=== PATIENT | male | born 1975 | race American Indian/Alaskan Native ===

== ENCOUNTER 2019-05-11 21:13 | Inpatient (IN) | payer OTHER ==
--- NOTE | 2019-05-11 21:53 | Emergency Department Report ---
ED Altered Mental Status HPI - General Stated Complaint: ALTERED MENTAL STATUS Time Seen by Provider: 05/11/19 21:49 Source: patient, EMS Mode of arrival: Stretcher Limitations: Altered Mental Status - History of Present Illness Initial Comments: Condition is a 43-year-old male that presents emergency room with complaints of confusion and altered mental status. Patient's family called 911 due to the patient answering questions incorrectly. Patient states he's had abdominal pain today that resolved. Patient states he drank 8 hours ago. Patient states he has a history of pancreatitis due to alcohol use. Patient states his pain was in the left upper quadrant. Patient states this point is resolved. Patient is currently a and O 2. Patient is oriented to self, place. Patient is disoriented to time. . Patient's last known well time 9:30 this morning. Patient's last drink was 8 hours ago. MD Complaint: altered mental status, confusion -: Sudden Severity: severe Consistency of Symptoms: getting worse Context: alcohol abuse Associated Symptoms: nausea/vomiting - Related Data Home Medications Medication Instructions Recorded Confirmed Last Taken No Known Home Medications [No 05/12/19 05/12/19 Unknown Reported Home Medications] Allergies Allergy/AdvReac Type Severity Reaction Status Date / Time No Known Allergies Allergy Verified 05/11/19 23:00 ED Review of Systems ROS: Stated complaint: ALTERED MENTAL STATUS Other details as noted in HPI Comment: Unobtainable due to pts medical conditions (ROS done however is unclear due to the patient's confusion and mental state.) Constitutional: denies: chills, fever Eyes: denies: eye pain, eye discharge, vision change ENT: denies: ear pain, throat pain Respiratory: denies: cough, shortness of breath, wheezing Cardiovascular: denies: chest pain, palpitations Endocrine: no symptoms reported Gastrointestinal: abdominal pain, nausea, vomiting. denies: diarrhea Genitourinary: denies: urgency, dysuria Musculoskeletal: denies: back pain, joint swelling, arthralgia Skin: denies: rash, lesions Neurological: denies: headache, weakness, paresthesias Psychiatric: denies: anxiety, depression Hematological/Lymphatic: denies: easy bleeding, easy bruising ED Past Medical Hx - Past Medical History Previous Medical History?: Yes Additional medical history: Pancreatitis - Surgical History Past Surgical History?: No - Family History Family history: no significant - Social History Smoking Status: Current Every Day Smoker Substance Use Type: Alcohol - Medications Home Medications: Home Medications Medication Instructions Recorded Confirmed Last Taken Type No Known Home Medications [No 05/12/19 05/12/19 Unknown History Reported Home Medications] ED Physical Exam - General Limitations: Altered Mental Status General appearance: alert, in no apparent distress - Head Head exam: Present: atraumatic, normocephalic - Eye Eye exam: Present: normal appearance - ENT ENT exam: Present: mucous membranes moist - Neck Neck exam: Present: normal inspection - Respiratory Respiratory exam: Present: normal lung sounds bilaterally. Absent: respiratory distress - Cardiovascular Cardiovascular Exam: Present: regular rate, normal rhythm. Absent: systolic murmur, diastolic murmur, rubs, gallop - GI/Abdominal GI/Abdominal exam: Present: soft, tenderness (left upper quadrant tenderness), normal bowel sounds - Rectal Rectal exam: Present: deferred - Extremities Exam Extremities exam: Present: normal inspection - Back Exam Back exam: Present: normal inspection - Neurological Exam Neurological exam: Present: alert, altered - Skin Skin exam: Present: warm, dry, intact, normal color. Absent: rash - Assessment Assessment Interval: Baseline - Level of Consciousness 1a. Level of Consciousness: alert/keenly responsive - LOC Questions 1b. LOC Questions: answers both correctly - LOC Command 1c. LOC Commands: performs tasks correctly - Best Gaze 2. Best Gaze: normal - Visual 3. Visual: no visual loss - Facial Palsy 4. Facial Palsy: normal symmetrical movement - Motor Arm 5a. Motor Arm Left: no drift 5b. Motor Arm Right: no drift - Motor Leg 6a. Motor Leg Left: no drift 6b. Motor Leg Right: no drift - Limb Ataxia 7. Limb Ataxia: absent - Sensory 8. Sensory: normal - Best Language 9. Best Language: no aphasia - Dysarthria 10. Dysarthria: normal - Extinction and Inattention 11. Extinction/Inattention: no abnormality - Scoring Total Score: 0 Stroke Severity: No Stroke Symptoms ED Course Vital Signs 05/11/19 05/11/19 05/12/19 22:09 23:00 00:00 Temperature 98.1 F Pulse Rate 51 L 48 L 48 L Respiratory 18 17 16 Rate Blood Pressure 133/88 129/88 125/86 Blood Pressure 133/88 [Right] O2 Sat by Pulse 100 97 98 Oximetry 05/12/19 01:00 Temperature Pulse Rate 45 L Respiratory 15 Rate Blood Pressure 143/86 Blood Pressure [Right] O2 Sat by Pulse 98 Oximetry - Reevaluation(s) Reevaluation #1: Patient is still confused. Patient is oriented to person and place but disoriented oriented to situation and time. Discussed case with . states the patient has been extremely confused today. 05/11/19 23:02 - Consultations Consultation #1: Hospital was counseled for admission. Hospitalist to admit patient. 05/12/19 00:21 - Lab Data Result diagrams: 05/11/19 22:26 05/11/19 22:26 Lab Results 05/11/19 05/11/19 05/11/19 Range/Units 22:26 22:26 22:26 WBC 12.5 H (4.5-11.0) K/mm3 RBC 4.36 (3.65-5.03) M/mm3 Hgb 13.7 (11.8-15.2) gm/dl Hct 40.3 (35.5-45.6) % MCV 92 (84-94) fl MCH 31 (28-32) pg MCHC 34 (32-34) % RDW 13.5 (13.2-15.2) % Plt Count 399 (140-440) K/mm3 Lymph % (Auto) 9.3 L (13.4-35.0) % Stephenson % (Auto) 5.4 (0.0-7.3) % Eos % (Auto) 0.0 (0.0-4.3) % Baso % (Auto) 0.8 (0.0-1.8) % Lymph # 1.2 (1.2-5.4) K/mm3 Stephenson # 0.7 (0.0-0.8) K/mm3 Eos # 0.0 (0.0-0.4) K/mm3 Baso # 0.1 (0.0-0.1) K/mm3 Seg Neutrophils % 84.5 H (40.0-70.0) % Seg Neutrophils # 10.6 H (1.8-7.7) K/mm3 Sodium 138 (137-145) mmol/L Potassium 3.8 (3.6-5.0) mmol/L Chloride 99.5 (98-107) mmol/L Carbon Dioxide 25 (22-30) mmol/L Anion Gap 17 mmol/L BUN 8 L (9-20) mg/dL Creatinine 1.1 (0.8-1.5) mg/dL Estimated GFR > 60 ml/min BUN/Creatinine Ratio 7 % Glucose 129 H (75-100) mg/dL Lactic Acid 2.10 H* (0.7-2.0) mmol/L Calcium 9.5 (8.4-10.2) mg/dL Total Bilirubin 0.70 (0.1-1.2) mg/dL AST 283 H (5-40) units/L ALT 102 H (7-56) units/L Alkaline Phosphatase 265 H (35-129) units/L Ammonia (25-60) umol/L Total Protein 7.3 (6.3-8.2) g/dL Albumin 3.6 L (3.9-5) g/dL Albumin/Globulin Ratio 1.0 % Lipase 12 L (13-60) units/L Urine Color (Yellow) Urine Turbidity (Clear) Urine pH (5.0-7.0) Ur Specific Stevenson (1.003-1.030) Urine Protein (Negative) mg/dL Urine Glucose (UA) (Negative) mg/dL Urine Ketones (Negative) mg/dL Urine Blood (Negative) Urine Nitrite (Negative) Urine Bilirubin (Negative) Urine Urobilinogen (<2.0) mg/dL Ur Leukocyte Esterase (Negative) Urine WBC (Auto) (0.0-6.0) /HPF Urine RBC (Auto) (0.0-6.0) /HPF U Epithel Cells (Auto) (0-13.0) /HPF Hyaline Casts /LPF Urine Mucus /HPF Urine Yeast (Budding) /HPF Salicylates (2.8-20.0) mg/dL Urine Opiates Screen Urine Methadone Screen Acetaminophen (10.0-30.0) ug/mL Ur Barbiturates Screen Ur Phencyclidine Scrn Ur Amphetamines Screen U Benzodiazepines Scrn Urine Cocaine Screen U Marijuana (THC) Screen Drugs of Abuse Note Plasma/Serum Alcohol (0-0.07) % 05/11/19 05/11/19 05/11/19 Range/Units 22:26 22:26 22:26 WBC (4.5-11.0) K/mm3 RBC (3.65-5.03) M/mm3 Hgb (11.8-15.2) gm/dl Hct (35.5-45.6) % MCV (84-94) fl MCH (28-32) pg MCHC (32-34) % RDW (13.2-15.2) % Plt Count (140-440) K/mm3 Lymph % (Auto) (13.4-35.0) % Stephenson % (Auto) (0.0-7.3) % Eos % (Auto) (0.0-4.3) % Baso % (Auto) (0.0-1.8) % Lymph # (1.2-5.4) K/mm3 Stephenson # (0.0-0.8) K/mm3 Eos # (0.0-0.4) K/mm3 Baso # (0.0-0.1) K/mm3 Seg Neutrophils % (40.0-70.0) % Seg Neutrophils # (1.8-7.7) K/mm3 Sodium (137-145) mmol/L Potassium (3.6-5.0) mmol/L Chloride (98-107) mmol/L Carbon Dioxide (22-30) mmol/L Anion Gap mmol/L BUN (9-20) mg/dL Creatinine (0.8-1.5) mg/dL Estimated GFR ml/min BUN/Creatinine Ratio % Glucose (75-100) mg/dL Lactic Acid (0.7-2.0) mmol/L Calcium (8.4-10.2) mg/dL Total Bilirubin (0.1-1.2) mg/dL AST (5-40) units/L ALT (7-56) units/L Alkaline Phosphatase (35-129) units/L Ammonia 58.0 (25-60) umol/L Total Protein (6.3-8.2) g/dL Albumin (3.9-5) g/dL Albumin/Globulin Ratio % Lipase (13-60) units/L Urine Color (Yellow) Urine Turbidity (Clear) Urine pH (5.0-7.0) Ur Specific Stevenson (1.003-1.030) Urine Protein (Negative) mg/dL Urine Glucose (UA) (Negative) mg/dL Urine Ketones (Negative) mg/dL Urine Blood (Negative) Urine Nitrite (Negative) Urine Bilirubin (Negative) Urine Urobilinogen (<2.0) mg/dL Ur Leukocyte Esterase (Negative) Urine WBC (Auto) (0.0-6.0) /HPF Urine RBC (Auto) (0.0-6.0) /HPF U Epithel Cells (Auto) (0-13.0) /HPF Hyaline Casts /LPF Urine Mucus /HPF Urine Yeast (Budding) /HPF Salicylates < 0.3 L (2.8-20.0) mg/dL Urine Opiates Screen Urine Methadone Screen Acetaminophen < 5.0 L (10.0-30.0) ug/mL Ur Barbiturates Screen Ur Phencyclidine Scrn Ur Amphetamines Screen U Benzodiazepines Scrn Urine Cocaine Screen U Marijuana (THC) Screen Drugs of Abuse Note Plasma/Serum Alcohol (0-0.07) % 05/11/19 05/11/19 05/11/19 Range/Units 22:26 22:39 22:39 WBC (4.5-11.0) K/mm3 RBC (3.65-5.03) M/mm3 Hgb (11.8-15.2) gm/dl Hct (35.5-45.6) % MCV (84-94) fl MCH (28-32) pg MCHC (32-34) % RDW (13.2-15.2) % Plt Count (140-440) K/mm3 Lymph % (Auto) (13.4-35.0) % Stephenson % (Auto) (0.0-7.3) % Eos % (Auto) (0.0-4.3) % Baso % (Auto) (0.0-1.8) % Lymph # (1.2-5.4) K/mm3 Stephenson # (0.0-0.8) K/mm3 Eos # (0.0-0.4) K/mm3 Baso # (0.0-0.1) K/mm3 Seg Neutrophils % (40.0-70.0) % Seg Neutrophils # (1.8-7.7) K/mm3 Sodium (137-145) mmol/L Potassium (3.6-5.0) mmol/L Chloride (98-107) mmol/L Carbon Dioxide (22-30) mmol/L Anion Gap mmol/L BUN (9-20) mg/dL Creatinine (0.8-1.5) mg/dL Estimated GFR ml/min BUN/Creatinine Ratio % Glucose (75-100) mg/dL Lactic Acid (0.7-2.0) mmol/L Calcium (8.4-10.2) mg/dL Total Bilirubin (0.1-1.2) mg/dL AST (5-40) units/L ALT (7-56) units/L Alkaline Phosphatase (35-129) units/L Ammonia (25-60) umol/L Total Protein (6.3-8.2) g/dL Albumin (3.9-5) g/dL Albumin/Globulin Ratio % Lipase (13-60) units/L Urine Color Yellow (Yellow) Urine Turbidity Slightly-cloudy (Clear) Urine pH 5.0 (5.0-7.0) Ur Specific Stevenson 1.017 (1.003-1.030) Urine Protein 100 mg/dl (Negative) mg/dL Urine Glucose (UA) Neg (Negative) mg/dL Urine Ketones Neg (Negative) mg/dL Urine Blood Lg (Negative) Urine Nitrite Neg (Negative) Urine Bilirubin Neg (Negative) Urine Urobilinogen < 2.0 (<2.0) mg/dL Ur Leukocyte Esterase Tr (Negative) Urine WBC (Auto) 29.0 H (0.0-6.0) /HPF Urine RBC (Auto) 172.0 (0.0-6.0) /HPF U Epithel Cells (Auto) < 1.0 (0-13.0) /HPF Hyaline Casts 2 /LPF Urine Mucus Few /HPF Urine Yeast (Budding) 1+ /HPF Salicylates (2.8-20.0) mg/dL Urine Opiates Screen Presumptive negative Urine Methadone Screen Presumptive negative Acetaminophen (10.0-30.0) ug/mL Ur Barbiturates Screen Presumptive negative Ur Phencyclidine Scrn Presumptive negative Ur Amphetamines Screen Presumptive negative U Benzodiazepines Scrn Presumptive negative Urine Cocaine Screen Presumptive negative U Marijuana (THC) Screen Presumptive negative Drugs of Abuse Note Disclamer Plasma/Serum Alcohol < 0.01 (0-0.07) % - Radiology Data Radiology results: report reviewed CT head/brain wo con INDICATION / CLINICAL INFORMATION: Altered Mental Status. Weakness and falls. TECHNIQUE: All CT scans at this location are performed using CT dose reduction for ALARA by means of automated exposure control. COMPARISON: None available. FINDINGS: There is mild generalized cerebral and cerebellar atrophy. No focal lesion or mass effect is seen. There is no evidence of intracranial hemorrhage or major vessel occlusion. The calvarium is intact. The visualized paranasal sinuses and mastoid air cells are clear. IMPRESSION: 1. No acute abnormality. 2. Mild generalized cerebral and cerebellar atrophy for a patient in this age group. CT abdomen pelvis wo con INDICATION: abd pain. n/v. ams. TECHNIQUE: All CT scans at this location are performed using CT dose reduction for ALARA by means of automated exposure control. COMPARISON: None available. FINDINGS: Minimal parenchymal disease in the base of the right middle lobe and lingula, atelectasis versus minimal consolidation. Hepatic steatosis, with no focal liver lesions. Spleen is negative. Small calcifications in the pancreas, suggesting chronic pancreatitis, but there is certainly no evidence of current pancreatitis. 1.2 cm cystic lesion in the pancreatic body. Nonobstructing calculi in both kidneys. Left kidney is hydronephrotic, with a 5 mm calculus in the proximal left ureter. Pelvis Normal appendix. Small amount of free fluid in the dependent pelvis. Urinary bladder and distal ureters are negative. IMPRESSION: 1. Bilateral nonobstructing renal calculi, with a 5 mm obstructing calculus in the proximal left ureter. 2. Pancreatic calcifications, suggesting chronic pancreatitis, with a 1.2 cm cystic lesion in the pancreatic body. No evidence of current pancreatitis. - Medical Decision Making Patient is a 43-year-old male that presents to emergency room with complaints of confusion and altered mental status. Patient has a long history of alcoholism. Patient blood alcohol negative. Patient placed on a CIWA protocol. Head CT shows atrophy. Patient's abdominal CT negative for acute findings which shows nonobstructive kidney stones and chronic pancreatitis. Patient labs unremarkable except for abnormal LFTs and UA positive for UTI and lactic acidosis. Patient given fluids. Patient given banana bag. Patient given antibiotics. - Differential Diagnosis alcoholism. UTI. Confusion. AMS. Critical Care Time: Yes Critical care attestation.: If time is entered above; I have spent that time in minutes in the direct care of this critically ill patient, excluding procedure time. Critical Care Time: 35 minutes ED Disposition Clinical Impression: Confusion, Weakness, Alcohol abuse, Lactic acid acidosis Altered mental state Qualifiers: Altered mental status type: unspecified Qualified Code(s): R41.82 - Altered mental status, unspecified UTI (urinary tract infection) Qualifiers: Urinary tract infection type: acute cystitis Hematuria presence: with hematuria Qualified Code(s): N30.01 - Acute cystitis with hematuria Chronic pancreatitis Qualifiers: Pancreatitis type: alcohol induced Qualified Code(s): K86.0 - Alcohol-induced chronic pancreatitis Abdominal pain Qualifiers: Abdominal location: generalized Qualified Code(s): R10.84 - Generalized abdominal pain Nausea & vomiting Qualifiers: Vomiting type: unspecified Vomiting Intractability: non-intractable Qualified Code(s): R11.2 - Nausea with vomiting, unspecified Disposition: DC-09 OP ADMIT IP TO THIS HOSP Is pt being admited?: Yes Does the pt Need Aspirin: No Condition: Critical Time of Disposition: 00:19
--- NOTE | 2019-05-11 22:34 | Cat Scan Report ---
CT abdomen pelvis wo con INDICATION: abd pain. n/v. ams. TECHNIQUE: All CT scans at this location are performed using CT dose reduction for ALARA by means of automated e xposure control. COMPARISON: None available. FINDINGS: Minimal parenchymal disease in the base of the right middle lobe and lingula, atelectasis versus mini mal consolidation. Hepatic steatosis, with no focal liver lesions. Spleen is negative. Small calcifications in the pancr eas, suggesting chronic pancreatitis, but there is certainly no evidence of current pancreatitis. 1.2 cm cystic lesion in the pancreatic body. Nonobstructing calculi in both kidneys. Left kidney is hydronephrotic, with a 5 mm calculus in the pr oximal left ureter. Pelvis Normal appendix. Small amount of free fluid in the dependent pelvis. Urinary bladder and distal urete rs are negative. IMPRESSION: 1. Bilateral nonobstructing renal calculi, with a 5 mm obstructing calculus in the proximal left uret er. 2. Pancreatic calcifications, suggesting chronic pancreatitis, with a 1.2 cm cystic lesion in the rojas creatic body. No evidence of current pancreatitis. Signer Name: Shahbaz De Santiago MD Signed: 05/11/2019 10:30 PM Workstation Name: [id number]
--- NOTE | 2019-05-11 22:35 | Cat Scan Report ---
CT head/brain wo con INDICATION / CLINICAL INFORMATION: Altered Mental Status. Weakness and falls. TECHNIQUE: All CT scans at this location are performed using CT dose reduction for ALARA by means of automated e xposure control. COMPARISON: None available. FINDINGS: There is mild generalized cerebral and cerebellar atrophy. No focal lesion or mass effect is seen. Th ere is no evidence of intracranial hemorrhage or major vessel occlusion. The calvarium is intact. The visualized paranasal sinuses and mastoid air cells are clear. IMPRESSION: 1. No acute abnormality. 2. Mild generalized cerebral and cerebellar atrophy for a patient in this age group. Signer Name: Lj Cain MD Signed: 05/11/2019 10:31 PM Workstation Name: [id number]
[2019-05-11 22:47] LABS: Basophils # (Auto) 0.1 K/mm3 (0.0-0.1); Basophils % (Auto) 0.8 % (0.0-1.8); Hematocrit 40.3 % (35.5-45.6); Hemoglobin 13.7 gm/dl (11.8-15.2); Lymphocytes # (Auto) 1.2 K/mm3 (1.2-5.4); Lymphocytes % (Auto) 9.3 % (13.4-35.0); Mean Corpuscular HGB Conc 34 % (32-34); Mean Corpuscular Volume 92 fl (84-94); Monocytes # (Auto) 0.7 K/mm3 (0.0-0.8); Monocytes % (Auto) 5.4 % (0.0-7.3); Platelet Count 399 K/mm3 (140-440); Red Blood Count 4.36 M/mm3 (3.65-5.03); Red Cell Distribution Width 13.5 % (13.2-15.2)
[2019-05-11] MEDS ORDERED: VITAMIN B-1 100 MG, FOLVITE 1 MG, INFUVITE 10 ML in NACL 0.9% 1000 ML 1,000 ML IV ONE (22:54)
[2019-05-11 22:56] LABS: Bilirubin,Urine NEG (Negative); Blood,Urine LG (Negative); Color,Urine Yellow (Yellow); Hyaline Casts,Urine 2 /LPF; Mucus,Urine FEW /HPF; Urobilinogen,Urine < 2.0 mg/dL (<2.0)
[2019-05-11 23:02] LABS: Amphetamine Screen,Urine PRESUMPTIVE NEGATIVE; Benzodiazepines Screen,Urine PRESUMPTIVE NEGATIVE; Cannabinoid Screen,Urine PRESUMPTIVE NEGATIVE; Cocaine Screen,Urine PRESUMPTIVE NEGATIVE; Methadone Screen,Urine PRESUMPTIVE NEGATIVE; Opiate Screen,Urine PRESUMPTIVE NEGATIVE
[2019-05-11 23:11] LABS: Alanine Aminotransferase 102 units/L (7-56); Albumin 3.6 g/dL (3.9-5); BUN/Creatinine Ratio 7; Blood Urea Nitrogen 8 mg/dL (9-20); Calcium 9.5 mg/dL (8.4-10.2); Hemolysis Index 0
[2019-05-11] MEDS ORDERED: NACL 0.9% 1000 ML 1,000 ML IV ONE (23:47)
[2019-05-12] MEDS ORDERED: MAXIPIME/NS 2 GM/100 ML 2 GM/100 ML BAG IV ONE (00:47)
[2019-05-12] MEDS ORDERED: ATIVAN IV PRN ×3 (00:47)
[2019-05-12] MEDS ORDERED: DILAUDID IV ONE (01:10)
[2019-05-12] MEDS ORDERED: SODIUM CHLORIDE FLUSH SYRINGE 10 ML IV PRN (01:42)
[2019-05-12] MEDS ORDERED: MORPHINE IV PRN (01:42)
[2019-05-12] MEDS ORDERED: ZOFRAN IV PRN (01:42)
[2019-05-12] MEDS ORDERED: NACL 0.9% 1000 ML 1,000 ML IV ONE (01:45)
--- NOTE | 2019-05-12 02:42 | History and Physical Report ---
History of Present Illness Date of examination: 05/12/19 Chief complaint: Abdominal pain History of present illness: Patient is a 43-year-old -Turkish male with history of chronic alcoholic pancreatitis who presented to the ED on account of a day history of left lower quadrant abdominal pain. He described it as sharp in character, rated 10 over 10 and radiating to the back. Pain is worse with oral liquid intake and improved with aspirin. He has associated constipation and nausea with vomiting. No urinary frequency or dysuria. No chest pain, shortness of breath, cough, fever, chills, headaches, lightheadedness, syncope or loss of consciousness. Past History Past Medical History: hypertension, other (chronic pancreatitis) Past Surgical History: Other (abdominal surgery for intestinal mass) Social history: alcohol abuse (patient has 10 years history of alcohol abuse. He currently drinks daily and his last drink was yesterday. He has 10 yrs history of smoking and 2 yrs history of cigarette smoking. He denies illicit drug use) Family history: diabetes (father) Medications and Allergies Allergies Allergy/AdvReac Type Severity Reaction Status Date / Time No Known Allergies Allergy Verified 05/11/19 23:00 Home Medications Medication Instructions Recorded Confirmed Last Taken Type No Known Home Medications [No 05/12/19 05/12/19 Unknown History Reported Home Medications] Active Meds: Active Medications Acetaminophen (Tylenol) 650 mg PO Q4H PRN PRN Reason: Pain MILD(1-3)/Fever >100.5/PERKINS Famotidine (Pepcid) 10 mg IV BID RAJENDRA Thiamine HCl 100 mg/ Folic Acid 1 mg/ Multivitamins/Minerals 10 ml/ Sodium Chloride 1,011.2 mls @ 250 mls/hr IV ONCE ONE Stop: 05/12/19 02:56 Last Admin: 05/11/19 23:25 Dose: 250 mls/hr Documented by: Sodium Chloride (Nacl 0.9% 1000 Ml) 1,000 mls @ 999 mls/hr IV BOLUS ONE Stop: 05/12/19 02:45 Last Admin: 05/12/19 02:20 Dose: 999 mls/hr Documented by: Sodium Chloride (Nacl 0.9% 1000 Ml) 1,000 mls @ 100 mls/hr IV DIRECT RAJENDRA Ceftriaxone Sodium (Rocephin/Ns 1 Gm/50 Ml) 1 gm in 50 mls @ 100 mls/hr IV Q24HR RAJENDRA; Protocol Lorazepam (Ativan) 2 mg IV Q1HR PRN PRN Reason: CIWA-Ar 8-15 Lorazepam (Ativan) 4 mg IV Q1HR PRN PRN Reason: CIWA-Ar 16-25 Lorazepam (Ativan) 4 mg IV Q15MIN PRN PRN Reason: CIWA-Ar >25 Morphine Sulfate (Morphine) 2 mg IV Q4H PRN PRN Reason: Pain , Severe (7-10) Ondansetron HCl (Zofran) 4 mg IV Q8H PRN PRN Reason: Nausea And Vomiting Oxycodone/Acetaminophen (Percocet 5/325) 1 tab PO Q6H PRN PRN Reason: Pain, Moderate (4-6) Sodium Chloride (Sodium Chloride Flush Syringe 10 Ml) 10 ml IV BID RAJENDRA Sodium Chloride (Sodium Chloride Flush Syringe 10 Ml) 10 ml IV PRN PRN PRN Reason: LINE FLUSH Review of Systems All systems: negative (all other systems reviewed with the patient and are negative unless otherwise stated) Exam - Constitutional Vitals: Temp Pulse Resp BP Pulse Ox 98.1 F 45 L 16 143/86 98 05/11/19 22:09 05/12/19 01:00 05/12/19 02:06 05/12/19 01:00 05/12/19 01:00 General appearance: Present: no acute distress - EENT Eyes: Present: PERRL, EOM intact ENT: hearing intact, clear oral mucosa - Neck Neck: Present: supple, normal ROM - Respiratory Respiratory effort: normal Respiratory: bilateral: CTA - Cardiovascular Rhythm: regular (with bradycardia) Heart Sounds: Present: S1 & S2. Absent: rub, click - Extremities Extremities: pulses symmetrical, No edema Peripheral Pulses: within normal limits - Abdominal General gastrointestinal: Present: soft, non-tender, non-distended, normal bowel sounds Male genitourinary: Present: deferred - Integumentary Integumentary: Present: clear, warm, dry - Musculoskeletal Musculoskeletal: gait normal, strength equal bilaterally - Psychiatric Psychiatric: appropriate mood/affect, intact judgment & insight - Neurologic Neurologic: CNII-XII intact, moves all extremities Results - Labs CBC & Chem 7: 05/11/19 22:26 05/11/19 22:26 Labs: Laboratory Last Values WBC 12.5 K/mm3 (4.5-11.0) H 05/11/19 22: RBC 4.36 M/mm3 (3.65-5.03) 05/11/19 22: Hgb 13.7 gm/dl (11.8-15.2) 05/11/19: Hct 40.3 % (35.5-45.6) 05/11/19 22: MCV 92 fl (84-94) 05/11/19: MCH 31 pg (28-32) 05/11/19 22: MCHC 34 % (32-34) 05/11/19: RDW 13.5 % (13.2-15.2) 05/11/19: Plt Count 399 K/mm3 (140-440) 05/11/19: Lymph % (Auto) 9.3 % (13.4-35.0) L 05/11/19: [place] % (Auto) 5.4 % (0.0-7.3) 05/11/19: Eos % (Auto) 0.0 % (0.0-4.3) 05/11/19: Baso % (Auto) 0.8 % (0.0-1.8) 05/11/19: Lymph # 1.2 K/mm3 (1.2-5.4) 05/11/19: Rush # 0.7 K/mm3 (0.0-0.8) 05/11/19: Eos # 0.0 K/mm3 (0.0-0.4) 05/11/19: Baso # 0.1 K/mm3 (0.0-0.1) 05/11/19: Seg Neutrophils % 84.5 % (40.0-70.0) H 05/11/19: Seg Neutrophils # 10.6 K/mm3 (1.8-7.7) H 05/11/19 22: Sodium 138 mmol/L (137-145) 05/11/19: Potassium 3.8 mmol/L (3.6-5.0) 05/11/19: Chloride 99.5 mmol/L (98-107) 05/11/19 22:26 Carbon Dioxide 25 mmol/L (22-30) 05/11/19 22:26 17 mmol/L 05/11/19 22:26 BUN 8 mg/dL (9-20) L 05/11/19 22:26 1.1 mg/dL (0.8-1.5) 05/11/19 22:26 Estimated GFR > 60 ml/min 05/11/19 22:26 7 % 05/11/19 22:26 Glucose 129 mg/dL (75-100) H 05/11/19 22:26 Lactic Acid 2.10 mmol/L (0.7-2.0) H* 05/11/19 22:26 Calcium 9.5 mg/dL (8.4-10.2) 05/11/19 22:26 0.70 mg/dL (0.1-1.2) 05/11/19 22:26 AST 283 units/L (5-40) H 05/11/19 22:26 ALT 102 units/L (7-56) H 05/11/19 22:26 265 units/L (35-129) H 05/11/19 22:26 58.0 umol/L (25-60) 05/11/19 22:26 7.3 g/dL (6.3-8.2) 05/11/19 22:26 3.6 g/dL (3.9-5) L 05/11/19 22:26 1.0 % 05/11/19 22:26 12 units/L (13-60) L 05/11/19 22:26 Yellow (Yellow) 05/11/19 22:39 Slightly-cloudy (Clear) 05/11/19 22:39 5.0 (5.0-7.0) 05/11/19 22:39 Ur Specific [place] 1.017 (1.003-1.030) 05/11/19 22:39 100 mg/dl mg/dL (Negative) 05/11/19 22:39 Neg mg/dL (Negative) 05/11/19 22:39 Neg mg/dL (Negative) 05/11/19 22:39 Lg (Negative) 05/11/19 22:39 Neg (Negative) 05/11/19 22:39 Neg (Negative) 05/11/19 22:39 < 2.0 mg/dL (<2.0) 05/11/19 22:39 Ur Leukocyte Esterase Tr (Negative) 05/11/19 22:39 29.0 /HPF (0.0-6.0) H 05/11/19 22:39 172.0 /HPF (0.0-6.0) 05/11/19 22:39 U Epithel Cells (Auto) < 1.0 /HPF (0-13.0) 05/11/19 22:39 Hyaline Casts 2 /LPF 05/11/19 22:39 Few /HPF 05/11/19 22:39 1+ /HPF 05/11/19 22:39 Salicylates < 0.3 mg/dL (2.8-20.0) L 05/11/19 22:26 Presumptive negative 05/11/19 22:39 Presumptive negative 05/11/19 22:39 Acetaminophen < 5.0 ug/mL (10.0-30.0) L 05/11/19 22:26 Ur Barbiturates Screen Presumptive negative 05/11/19 22:39 Ur Phencyclidine Scrn Presumptive negative 05/11/19 22:39 Ur Amphetamines Screen Presumptive negative 05/11/19 22:39 U Benzodiazepines Scrn Presumptive negative 05/11/19 22:39 Presumptive negative 05/11/19 22:39 U Marijuana (THC) Screen Presumptive negative 05/11/19 22:39 Disclamer 05/11/19 22:39 Plasma/Serum Alcohol < 0.01 % (0-0.07) 05/11/19 22:26 Assessment and Plan Assessment and plan: Left lower quadrant abdominal pain -Likely secondary to obstructing left renal calculi -On IV fluid and when necessary narcotics UTI/Acute cystitis -On IV antibiotic -Follow up urine culture results Lactic acidosis -Likely due to the acute process -We'll hydrate patient and repeat level Sinus bradycardia -Thyroid function tests pending -Echocardiogram pending Transaminitis -Likely secondary to chronic alcohol use, will monitor levels Chronic pancreatitis -On when necessary narcotics Hypertension -Stable History of alcohol abuse -Alcohol level is normal, on CISC protocol DVT prophylaxis with SCD and GI prophylaxis with famotidine Disposition: Patient will be placed in inpatient status with plan for discharge when clinically stable Time spent: 38 minutes
[2019-05-12] MEDS: NACL 0.9% 1000 ML 1,000 ML IV SCH (03:19)
[2019-05-12] MEDS: PERCOCET 5/325 PO PRN ×3 (05:57→18:22)
--- NOTE | 2019-05-12 12:05 | Event Note ---
Date: 05/12/19 Patient was admitted with abdominal and left flank pain, asymptomatic bradycardia History of alcohol use, on [facility] protocol Patient seen and examined medical records reviewed Agree with the current management Assessment: --Left obstructing proximal ureteral stone on CT/left hydronephrotic kidney --Asymptomatic bradycardia; closely monitor heart rate --Lactic acidosis --UTI/acute cystitis --Transaminitis/alcohol liver disease --Hypertension --Chronic alcohol use Plan; IV fluids/pain medications Urology consult Am[I discussed with the urologist] [facility] protocol Follow echocardiogram Cardiology consult if no improvement in heart rate DVT prophylaxis Counseling to quit alcohol intake May need alcohol rehabilitation Disposition; follow clinically, discharge when medically stable Follow urology evaluation and recommendations
[2019-05-12] MEDS: PEPCID IV SCH ×2 (12:54→23:30)
[2019-05-12] MEDS: SODIUM CHLORIDE FLUSH SYRINGE 10 ML IV SCH ×2 (12:54→23:30)
[2019-05-12] MEDS: ROCEPHIN/NS 1 GM/50 ML 1 GM/50 ML BAG IV SCH (12:54)
[2019-05-12 13:36] LABS: Basophils # (Auto) 0.1 K/mm3 (0.0-0.1); Basophils % (Auto) 0.7 % (0.0-1.8); Eosinophils # (Auto) 0.1 K/mm3 (0.0-0.4); Eosinophils % (Auto) 1.3 % (0.0-4.3); Hematocrit 36.2 % (35.5-45.6); Hemoglobin 12.1 gm/dl (11.8-15.2); Lymphocytes # (Auto) 1.8 K/mm3 (1.2-5.4); Lymphocytes % (Auto) 21.8 % (13.4-35.0); Mean Corpuscular HGB Conc 33 % (32-34); Mean Corpuscular Volume 94 fl (84-94); Monocytes # (Auto) 0.6 K/mm3 (0.0-0.8); Monocytes % (Auto) 7.4 % (0.0-7.3); Platelet Count 308 K/mm3 (140-440); Red Blood Count 3.86 M/mm3 (3.65-5.03)
[2019-05-12 13:59] LABS: Alanine Aminotransferase 68 units/L (7-56); Albumin 2.7 g/dL (3.9-5); BUN/Creatinine Ratio 8; Blood Urea Nitrogen 7 mg/dL (9-20); Calcium 8.2 mg/dL (8.4-10.2); Hemolysis Index 34
[2019-05-12] MEDS: TYLENOL PO PRN (23:33)
[2019-05-12] MEDS: APRESOLINE IV PRN (23:34)
[2019-05-13] MEDS: NACL 0.9% 1000 ML 1,000 ML IV SCH ×2 (04:48→14:15)
[2019-05-13 05:43] LABS: BUN/Creatinine Ratio 6; Blood Urea Nitrogen 5 mg/dL (9-20); Calcium 8.3 mg/dL (8.4-10.2)
[2019-05-13 05:44] LABS: Alanine Aminotransferase 58 units/L (7-56); Albumin 2.7 g/dL (3.9-5); Bilirubin,Direct 0.2 mg/dL (0-0.2); Hemolysis Index 0
--- NOTE | 2019-05-13 08:33 | Consultation ---
History of Present Illness - Reason for Consult Consult date: 05/13/19 - History of Present Illness new to urology service Patient is a 43-year-old -Citizen Of [place] male with history of chronic alcoholic pancreatitis who presented to the ED on account of a day history of left lower quadrant abdominal pain. He described it as sharp in character, rated 10 over 10 and radiating to the back. Pain is worse with oral liquid intake and improved with aspirin. He has associated constipation and nausea with vomiting. No urinary frequency or dysuria. No chest pain, shortness of breath, cough, fever, chills, headaches, lightheadedness, syncope or loss of consciousness. CTAP bilat renal stones, 5mm left stone with hydro A/P Bilat stones hx of chronic alcoholic pancreatitis Past History Past Medical History: hypertension, other (chronic pancreatitis) Past Surgical History: Other (abdominal surgery for intestinal mass) Social history: alcohol abuse (patient has 10 years history of alcohol abuse. He currently drinks daily and his last drink was yesterday. He has 10 yrs history of smoking and 2 yrs history of cigarette smoking. He denies illicit drug use) Family history: diabetes (father) Medications and Allergies Allergies Allergy/AdvReac Type Severity Reaction Status Date / Time No Known Allergies Allergy Verified 05/11/19 23:00 Home Medications Medication Instructions Recorded Confirmed Last Taken Type No Known Home Medications [No 05/12/19 05/12/19 Unknown History Reported Home Medications] Active Meds: Active Medications Acetaminophen (Tylenol) 650 mg PO Q4H PRN PRN Reason: Pain MILD(1-3)/Fever >100.5/PERKINS Last Admin: 05/12/19 23:33 Dose: 650 mg Documented by: Famotidine (Pepcid) 10 mg IV BID RAJENDRA Last Admin: 05/12/19 23:30 Dose: 10 mg Documented by: Hydralazine HCl (Apresoline) 10 mg IV Q4HR PRN PRN Reason: Blood Pressure Last Admin: 05/12/19 23:34 Dose: 10 mg Documented by: Sodium Chloride (Nacl 0.9% 1000 Ml) 1,000 mls @ 100 mls/hr IV DIRECT RAJENDRA Last Admin: 05/13/19 04:48 Dose: 100 mls/hr Documented by: Ceftriaxone Sodium (Rocephin/Ns 1 Gm/50 Ml) 1 gm in 50 mls @ 100 mls/hr IV Q24HR RAJENDRA; Protocol Last Admin: 05/12/19 12:54 Dose: 100 mls/hr Documented by: Lorazepam (Ativan) 2 mg IV Q1HR PRN PRN Reason: CIWA-Ar 8-15 Lorazepam (Ativan) 4 mg IV Q1HR PRN PRN Reason: CIWA-Ar 16-25 Lorazepam (Ativan) 4 mg IV Q15MIN PRN PRN Reason: CIWA-Ar >25 Morphine Sulfate (Morphine) 2 mg IV Q4H PRN PRN Reason: Pain , Severe (7-10) Last Admin: 05/13/19 05:41 Dose: 2 mg Documented by: Ondansetron HCl (Zofran) 4 mg IV Q8H PRN PRN Reason: Nausea And Vomiting Oxycodone/Acetaminophen (Percocet 5/325) 1 tab PO Q6H PRN PRN Reason: Pain, Moderate (4-6) Last Admin: 05/12/19 18:22 Dose: 1 tab Documented by: Sodium Chloride (Sodium Chloride Flush Syringe 10 Ml) 10 ml IV BID [facility] Last Admin: 05/12/19 23:30 Dose: 10 ml Documented by: Sodium Chloride (Sodium Chloride Flush Syringe 10 Ml) 10 ml IV PRN PRN PRN Reason: LINE FLUSH Exam - Constitutional Vitals: Temp Pulse Resp BP Pulse Ox 99.0 F 49 L 18 150/93 97 05/13/19 05:29 05/13/19 05:29 05/13/19 05:29 05/13/19 05:29 05/13/19 05:29 Results - Labs CBC & Chem 7: 05/12/19 12:44 05/13/19 04:44 Labs: Abnormal lab results 05/12/19 05/12/19 05/13/19 Range/Units 12:44 12:44 04:44 [place] % (Auto) 7.4 H (0.0-7.3) % Sodium 136 L 136 L (137-145) mmol/L Carbon Dioxide 20 L (22-30) mmol/L BUN 7 L 5 L (9-20) mg/dL Glucose 128 H 111 H (75-100) mg/dL Calcium 8.2 L 8.3 L (8.4-10.2) mg/dL Magnesium 1.40 L (1.7-2.3) mg/dL AST 105 H 101 H (5-40) units/L ALT 68 H 58 H (7-56) units/L Alkaline Phosphatase 189 H 175 H (35-129) units/L Total Protein 6.1 L 5.9 L (6.3-8.2) g/dL Albumin 2.7 L 2.7 L (3.9-5) g/dL
[2019-05-13] MEDS: ROCEPHIN/NS 1 GM/50 ML 1 GM/50 ML BAG IV SCH (09:12)
[2019-05-13] MEDS: PEPCID IV SCH ×2 (09:12→21:33)
[2019-05-13] MEDS: SODIUM CHLORIDE FLUSH SYRINGE 10 ML IV SCH ×2 (09:13→21:34)
[2019-05-13] MEDS: TYLENOL PO PRN ×2 (14:12→20:24)
[2019-05-13] MEDS: APRESOLINE IV PRN (14:12)
--- NOTE | 2019-05-13 15:42 | Progress Note ---
Assessment and Plan Left lower quadrant abdominal pain -Likely secondary to obstructing left renal calculi -On IV fluid and when necessary narcotics - urology consulted and planned for cystoscopy today UTI/Acute cystitis -On IV antibiotic -Follow up urine culture results Lactic acidosis -Likely due to the acute process -We'll hydrate patient and repeat level Sinus bradycardia -Thyroid function tests pending -Echocardiogram pending Transaminitis -Likely secondary to chronic alcohol use, will monitor levels Chronic pancreatitis -On when necessary narcotics Hypertension -Stable History of alcohol abuse -Alcohol level is normal, on CIWA protocol DVT prophylaxis with SCD and GI prophylaxis with famotidine Disposition: Patient will be placed in inpatient status with plan for discharge when clinically stable Subjective Date of service: 05/13/19 Interval history: Patient seen and examined c/o lumber pain, and dysurea NPO now for the procedure this afternoon Objective - Constitutional Vitals: Vital Signs - 12hr 05/13/19 05/13/19 05:29 12:05 Temperature 99.0 F 99.4 F Pulse Rate 49 L 54 L Respiratory 18 20 Rate Blood Pressure 150/93 169/105 O2 Sat by Pulse 97 95 Oximetry General appearance: Present: no acute distress - EENT Eyes: PERRL, EOM intact ENT: hearing intact, clear oral mucosa Ears: bilateral: normal - Neck Neck: supple, normal ROM - Respiratory Respiratory effort: normal Respiratory: bilateral: CTA - Cardiovascular Rhythm: regular Heart Sounds: Present: S1 & S2. Absent: gallop, rub Extremities: pulses intact, No edema, normal color, Full ROM - Gastrointestinal General gastrointestinal: Present: soft, non-distended, normal bowel sounds, other (CVa tenderness) - Integumentary Integumentary: clear, warm, dry - Musculoskeletal Musculoskeletal: 1, strength equal bilaterally - Neurologic Neurologic: moves all extremities - Psychiatric Psychiatric: memory intact, appropriate mood/affect, intact judgment & insight - Labs CBC & Chem 7: 05/12/19 12:44 05/13/19 04:44 Labs: Abnormal lab results 05/13/19 Range/Units 04:44 Sodium 136 L (137-145) mmol/L BUN 5 L (9-20) mg/dL Glucose 111 H (75-100) mg/dL Calcium 8.3 L (8.4-10.2) mg/dL Magnesium 1.40 L (1.7-2.3) mg/dL AST 101 H (5-40) units/L ALT 58 H (7-56) units/L Alkaline Phosphatase 175 H (35-129) units/L Total Protein 5.9 L (6.3-8.2) g/dL Albumin 2.7 L (3.9-5) g/dL - Imaging and cardiology CT scan - abdomen: report reviewed CT Scan - head: report reviewed
[2019-05-13] MEDS ORDERED: ZOFRAN IV PRN ×2 (16:34→17:49)
[2019-05-13] MEDS ORDERED: SUBLIMAZE IV PRN (16:34)
--- NOTE | 2019-05-13 16:36 | Anesthesia Day of Surgery ---
Anesthesia Day of Surgery - Day of Surgery Patient Examined: Yes Patient H&P Reviewed: Yes Patient is NPO: Yes
--- NOTE | 2019-05-13 16:38 | Anesthesia Consultation ---
Anesthesia Consult and Med Hx Date of service: 05/13/19 - Airway Anesthetic Teeth Evaluation: Poor (LOOSE upper right) ROM Head & Neck: Adequate Mental/Hyoid Distance: Adequate Mallampati Class: Class II Intubation Access Assessment: Good - Pre-Operative Health Status ASA Pre-Surgery Classification: ASA3 Proposed Anesthetic Plan: General - Pulmonary Hx Smoking: Yes Hx Asthma: No COPD: No Hx Pneumonia: No Hx Sleep Apnea: No - Cardiovascular System Hx Hypertension: Yes (No RX) Hx Cardia Arrhythmia: Yes (Bradycardia; EF 40-45%) - Central Nervous System Hx Psychiatric Problems: No - Endocrine Hx End Stage Renal Disease: No Hx Liver Disease: Yes (Increased LFTs; Albumin 2.7) Hx Non-Insulin Dependent Diabetes: No (Pancreatitis) - Other Systems Hx Alcohol Use: Yes (Heavy) Hx Substance Use: No Hx Cancer: No
[2019-05-13] MEDS ORDERED: LACTATED RINGERS 1,000 ML ONE (16:46)
[2019-05-13] MEDS ORDERED: DIPRIVAN 10 MG/ML IV ONE (16:50)
[2019-05-13] MEDS ORDERED: XYLOCAINE MPF 2% ONE (16:50)
[2019-05-13] MEDS ORDERED: SUBLIMAZE ONE (16:50)
[2019-05-13] MEDS ORDERED: LEVAQUIN 500MG/100ML 500 MG/100 ML BAG IV ONE (17:21)
--- NOTE | 2019-05-13 17:48 | Post Operative Note ---
Date of procedure: 05/13/19 Pre-op diagnosis: left ureteral stone 5mm Post-op diagnosis: same Procedure: cysto, rpg, left ureteroscopy laser, basket stone, stent with external string Anesthesia: FRANNY Surgeon: VERÓNICA JIMÉNEZ Condition: stable Disposition: PACU (bactrim & norco on chart)
[2019-05-13] MEDS ORDERED: MORPHINE IV PRN (17:49)
[2019-05-13] MEDS ORDERED: NORCO 5/325 PO PRN (17:49)
[2019-05-13] MEDS ORDERED: NARCAN 0.4 MG/1 ML IV PRN (17:49)
--- NOTE | 2019-05-13 18:43 | Operative Report ---
PREOPERATIVE DIAGNOSIS: Left proximal ureteral stone. POSTOPERATIVE DIAGNOSIS: Left proximal ureteral stone. PROCEDURE: Cystoscopy, bilateral retrograde pyelograms, left ureteroscopy, holmium laser lithotripsy, basket stone extraction, double-J stent (6-[place] 26 cm with an external string). SURGEON: Antoni Sinha MD ANESTHESIA: General. ESTIMATED BLOOD LOSS: Minimal. FLUIDS: Crystalloid. COMPLICATIONS: No complications. INDICATIONS: This patient is a 43-year-old gentleman who presented to the Emergency Room with severe flank pain. CT of abdomen and pelvis revealed a 5 mm left proximal ureteral stone. We were consulted. Discussed options with the patient. He gives a history of kidney stones; however, he has passed them in the past and not required any surgery. His pain was severe. We discussed options. He agreed to proceed with surgical intervention. Written information was given. DESCRIPTION OF PROCEDURE: The patient was taken to the operative suite, placed in a supine position. After adequate general anesthesia, he was placed in a dorsal lithotomy position, prepped and draped in a sterile fashion. Pancystourethroscopy was performed with 22-[place] Storz cystoscope, no urethral abnormalities. Prostate nonobstructing. Bladder, no tumors or stones were noted. Both ureteral orifices were in normal position. Bilateral retrograde pyelograms were obtained with an 8-[place] catheter and 8 mL of contrast. No filling defects or obstruction on the right. Left side, obvious filling defects proximal ureter at the level of L3, two 0.035 Glidewires were placed. Rigid ureteroscopy yellow stone could be appreciated. Attempted holmium laser lithotripsy at 4 carrasco. Several shocks were performed and then the stone began to migrate proximally. At that point, I engaged the stone with a 3-[place] Blanche basket and extracted the stone and we will give it to the patient. Ureteroscopy revealed no other stones in the left ureter. A 6-[place] 26 cm double-J stent with an external string was left indwelling. Rectal exam was benign. He tolerated the procedure well. He was extubated. He will go home on [place] and Bactrim. JOB# [id number] [facility]
[2019-05-13] MEDS ORDERED: NACL 0.45% 1000 ML 1,000 ML IV SCH (19:00)
--- NOTE | 2019-05-13 19:42 | Fluoroscopy Report ---
INTRAOPERATIVE FLUOROSCOPY: RETROGRADE UROGRAPHY INDICATION / CLINICAL INFORMATION: LT URETERAL STONE. TECHNIQUE: Intraoperative spot images were obtained during the procedure. FINDINGS: Retrograde injection of the right ureter demonstrates no acute abnormality. Retrograde injection of the left ureter demonstrates left intrarenal stone. Ureteroscope was advanced into the proximal left ureter. Left ureteral stent was left in place at the end of procedure in expe cted position. Fluoroscopy Time: 1 minute 10 seconds. Fluoroscopy Images: 9. Signer Name: Pradip Charles MD Signed: 05/13/2019 7:38 PM Workstation Name: [id number]
--- NOTE | 2019-05-13 20:04 | Post Anesthesia Evaluation ---
- Post Anesthesia Evaluation Patient Participated: Yes Airway Patent: Yes Stable Respiratory Function: Yes Nausea/Vomiting: No Temp > 96.8F: Yes Pain Manageable: Yes Adequeate Hydration: Yes Anesthesia Complications: No Block Receding Appropriately: Not Applicable Patient on Ventilator: No
[2019-05-14] MEDS: PEPCID IV SCH (10:13)
[2019-05-14] MEDS: ROCEPHIN/NS 1 GM/50 ML 1 GM/50 ML BAG IV SCH (10:14)
[2019-05-14] MEDS: SODIUM CHLORIDE FLUSH SYRINGE 10 ML IV SCH (10:19)
[2019-05-14 12:29] VITALS: BP 133/84
--- NOTE | 2019-05-14 12:58 | Discharge Summary ---
Providers - Providers Date of Admission: 05/12/19 01:42 Date of discharge: 05/14/19 Attending physician: ANGELO LOPEZ 05/13/19 08:00 Consult to Physician [CONS] Routine Comment: Consulting Provider: VERÓNICA JIMÉNEZ Physician Instructions: Reason For Exam: Lt Hydronephrotic kidney obst stone Lt.prox ureter [facility] Hospital[facility] Condition: Critical Hospital course: Discharge Diagnosis: Left lower quadrant abdominal pain -Likely secondary to obstructing left renal calculi -On IV fluid and when necessary narcotics UTI/Acute cystitis -On IV antibiotic -Follow up urine culture results Lactic acidosis -Likely due to the acute process -We'll hydrate patient and repeat level Sinus bradycardia -Thyroid function tests pending -Echocardiogram pending Transaminitis -Likely secondary to chronic alcohol use, will monitor levels Chronic pancreatitis -On when necessary narcotics Hypertension -Stable History of alcohol abuse -Alcohol level is normal, on CIWA protocol Disposition: DC- TO HOME OR SELFCARE Time spent for discharge: 34 minutes Core Measure Documentation - Palliative Care Palliative Care/ Comfort Measures: Not Applicable - Core Measures Any of the following diagnoses?: none Exam - Constitutional Vitals: Temp Pulse Resp BP Pulse Ox 98.9 F 49 L 20 133/84 97 05/14/19 11:40 05/14/19 11:40 05/14/19 11:40 05/14/19 11:40 05/14/19 11:40 Plan Activity: advance as tolerated Weight Bearing Status: Non-Weight Bearing Diet: low fat, low salt Follow up with: [place]ANI HER[place] MD [facility] [Primary Care Provider] - 3-5 Days VERÓNICA JIMÉNEZ MD [Staff Physician] - 7 Days Prescriptions: Ciprofloxacin HCl [Ciprofloxacin TAB] 500 mg PO Q12HR #10 tab
== END 2019-05-14 18:36 | disposition home or self-care (01) | DRG 660 ==
LOC: ED 21:13 → 3A 05-12 01:42
PROVIDERS: ADMIT Internal Medicine; ATTEND Internal Medicine
PROC: 0T778DZ Dilation of Left Ureter with Intraluminal Device, Via Natural or Artificial Opening Endoscopic (ICD-10-PCS; principal; 2019-05-13)
PROC: 0TC78ZZ Extirpation of Matter from Left Ureter, Via Natural or Artificial Opening Endoscopic (ICD-10-PCS; 2019-05-13)
PROC: BT141ZZ Fluoroscopy of Kidneys, Ureters and Bladder using Low Osmolar Contrast (ICD-10-PCS; 2019-05-13)
DX: N13.6 Pyonephrosis (principal); K86.0 Alcohol-induced chronic pancreatitis; E87.2 Acidosis; I10 Essential (primary) hypertension; R00.1 Bradycardia, unspecified; R74.0 Nonspecific elevation of levels of transaminase and lactic acid dehydrogenase [LDH]; F17.210 Nicotine dependence, cigarettes, uncomplicated; F10.10 Alcohol abuse, uncomplicated; Y90.9 Presence of alcohol in blood, level not specified; K70.9 Alcoholic liver disease, unspecified; Z83.3 Family history of diabetes mellitus; Z87.442 Personal history of urinary calculi
CPT/HCPCS: 36415; 70450; 74176; 74420; 80048; 80053; 80076; 80307; 80320; 81001; 82140; 83690; 83735; 84439; 84443; 85025; 87040; 87086; 93306; 99406; G0378; C1758; C1769; C2617; G0480; J0360; J0692; J0696; J1170; J1956; J2270; J2704; J3010; J3411; J7030; J7120; Q9967